=== PATIENT | female | born 1990 | race Caucasian/White ===

== ENCOUNTER 2020-12-11 09:00 | Outpatient (CLI) | payer OTHER ==
[2012-10-07 06:11] VITALS: BMI 21.9
== END 2020-12-11 09:46 | disposition home or self-care (01) ==
LOC: D.LDO 09:00
PROVIDERS: ATTEND Student in an Organized Health Care Education/Training Program
DX: O35.9XX0 Maternal care for (suspected) fetal abnormality and damage, unspecified, not applicable or unspecified (principal)

== ENCOUNTER 2020-12-21 10:07 | Outpatient (CLI) | payer OTHER ==
[2012-10-07 06:11] VITALS: BMI 21.9
[2020-12-21 10:44] LABS: BASOPHILS 0.2 % (0-2); EOSINOPHILS 0.9 % (0-7); HEMOGLOBIN 11.5 g/dL (12-16); IMMATURE GRANULOCYTES 0.6 % (0-5); LYMPHOCYTE ABS# 1.21 10x3/uL (1.18-3.74); LYMPHOCYTES 13.6 % (15-50); MCH 28.3 pg (26.0-34.0); MCHC 33.8 g/dL (31.0-37.0); MCV 83.7 fL (80.0-100.0); MONOCYTES 7.8 % (2-11); NEUTROPHIL ABS# 6.83 10x3/uL (1.56-6.13); NEUTROPHILS 76.9 % (40-80); PLATELET COUNT 207 10x3/uL (130-400); RBC 4.06 10x6/uL (4.00-5.40); RDW 12.5 % (11.5-14.5); WBC 8.9 10x3/uL (4.8-10.8)
[2020-12-21 10:46] LABS: BILIRUBIN NEGATIVE (NEGATIVE); KETONE NEGATIVE (NEGATIVE); NITRITE NEGATIVE (NEGATIVE); UROBILINOGEN NORMAL mg/dL (< 2)
[2020-12-21 10:55] LABS: CALC OSMOLALITY 266 mosm/kg (275-300); CALCIUM 8.1 mg/dL (8.5-10.1); CARBON DIOXIDE 22.2 mmol/L (21.0-32.0); CHLORIDE - SERUM 103 mmol/L (98-107); CREATININE - SERUM 0.6 mg/dL (0.6-1.3); GLUCOSE 87 mg/dL (74-106); POTASSIUM - SERUM 3.4 mmol/L (3.5-5.1); SODIUM 135 mmol/L (136-145); UREA NITROGEN 7 mg/dL (7-18); eGFR NON AFRICAN AMERICAN > 90 mL/min (90-120)
[2020-12-21 11:07] LABS: ALBUMIN 2.6 g/dL (3.4-5.0); ALKALINE PHOSPHATASE 122 U/L (30-120); ALT (SGPT) 17 U/L (10-68); BILIRUBIN - INDIRECT 0.22 mg/dL (0.00-1.00); BILIRUBIN - TOTAL 0.25 mg/dL (0.2-1.3); PROTEIN - SERUM 6.1 g/dL (6.4-8.2); URIC ACID 3.5 mg/dL (2.6-7.2)
[2020-12-21 11:08] LABS: BILIRUBIN - DIRECT 0.03 mg/dL (0.00-0.30)
[2020-12-21 12:50] LABS: CREATININE - URINE 117.6 mg/dL (30-125); PRO/CRE RATIO URINE 0.1 mg/g; PROTEIN - URINE 9.2 mg/dL (0.0-11.9)
== END 2020-12-21 13:05 | disposition home or self-care (01) ==
LOC: D.LDO 10:07
PROVIDERS: ATTEND Student in an Organized Health Care Education/Training Program
DX: O36.8190 Decreased fetal movements, unspecified trimester, not applicable or unspecified (principal)

== ENCOUNTER 2020-12-27 16:13 | Outpatient (CLI) | payer OTHER ==
[2012-10-07 06:11] VITALS: BMI 21.9
[2020-12-27 16:40] LABS: BASOPHILS 0.1 % (0-2); EOSINOPHILS 0.9 % (0-7); HEMATOCRIT 33.3 % (36.0-48.0); HEMOGLOBIN 11.3 g/dL (12-16); IMMATURE GRANULOCYTES 0.6 % (0-5); LYMPHOCYTE ABS# 1.38 10x3/uL (1.18-3.74); LYMPHOCYTES 15.6 % (15-50); MCH 28.7 pg (26.0-34.0); MCHC 33.9 g/dL (31.0-37.0); MCV 84.5 fL (80.0-100.0); MEAN PLATELET VOLUME 10.1 fL (7.4-10.4); MONOCYTES 8.4 % (2-11); NEUTROPHIL ABS# 6.56 10x3/uL (1.56-6.13); NEUTROPHILS 74.4 % (40-80); PLATELET COUNT 197 10x3/uL (130-400); RBC 3.94 10x6/uL (4.00-5.40); RDW 12.5 % (11.5-14.5); WBC 8.8 10x3/uL (4.8-10.8)
[2020-12-27 17:17] LABS: CALC OSMOLALITY 274 mosm/kg (275-300); CALCIUM 8.6 mg/dL (8.5-10.1); CARBON DIOXIDE 25.3 mmol/L (21.0-32.0); CHLORIDE - SERUM 106 mmol/L (98-107); CREATININE - SERUM 0.7 mg/dL (0.6-1.3); GLUCOSE 83 mg/dL (74-106); POTASSIUM - SERUM 3.5 mmol/L (3.5-5.1); SODIUM 139 mmol/L (136-145); UREA NITROGEN 6 mg/dL (7-18); eGFR NON AFRICAN AMERICAN > 90 mL/min (90-120)
[2020-12-27 17:29] LABS: ALBUMIN 2.5 g/dL (3.4-5.0); ALKALINE PHOSPHATASE 131 U/L (30-120); ALT (SGPT) 17 U/L (10-68); BILIRUBIN - DIRECT 0.05 mg/dL (0.00-0.30); BILIRUBIN - TOTAL 0.15 mg/dL (0.2-1.3); PROTEIN - SERUM 5.6 g/dL (6.4-8.2)
[2020-12-27 18:02] LABS: BILIRUBIN NEGATIVE (NEGATIVE); CREATININE - URINE 115.2 mg/dL (30-125); KETONE NEGATIVE (NEGATIVE); NITRITE NEGATIVE (NEGATIVE); PRO/CRE RATIO URINE 0.1 mg/g; PROTEIN - URINE 12.9 mg/dL (0.0-11.9); UROBILINOGEN NORMAL mg/dL (< 2)
[2020-12-27 18:03] LABS: BACTERIA MODERATE HPF (NONE SEEN); SQUAMOUS EPITHELIAL 0-5 HPF (0-4)
[2020-12-27 18:04] LABS: AMORPHOUS SEDIMENT MANY LPF (NONE SEEN)
[2020-12-31 11:43] LABS: CREATININE - URINE 130.2 mg/dL (30-125); PRO/CRE RATIO URINE 0.1 mg/g; PROTEIN - URINE 13.8 mg/dL (0.0-11.9)
== END 2020-12-27 18:50 | disposition home or self-care (01) ==
LOC: D.LDO 16:13
PROVIDERS: ATTEND Student in an Organized Health Care Education/Training Program
DX: O26.899 Other specified pregnancy related conditions, unspecified trimester (principal); R51.9 Headache, unspecified

== ENCOUNTER 2020-12-31 11:46 | Outpatient (CLI) | payer OTHER ==
[2012-10-07 06:11] VITALS: BMI 21.9
[2021-01-02 20:49] VITALS: BMI 32.3
== END 2020-12-31 12:22 | disposition home or self-care (01) ==
LOC: D.LDO 11:46
PROVIDERS: ATTEND Obstetrics & Gynecology
DX: O16.9 Unspecified maternal hypertension, unspecified trimester (principal)

== ENCOUNTER 2021-01-02 20:03 | Inpatient (IN) | payer OTHER ==
[~2021-01-02] VITALS: Ht 170.2 cm; Wt 93.4 kg
[2021-01-02] MEDS ORDERED: TUMS X-STR300 MG PO (20:47)
[2021-01-02] MEDS ORDERED: UNISOM SLEEP AI25 MG PO (20:48)
[2021-01-02] MEDS ORDERED: FAMOTIDINE10 MG PO (20:48)
[2021-01-02 20:49] VITALS: BP 126/83; Ht 170.2 cm; Wt 93.4 kg
[2021-01-02] MEDS ORDERED: ACETAMINOPHEN500 M1 PO (20:49)
[2021-01-02 21:12] LABS: HEMATOCRIT 33.6 % (36.0-48.0); HEMOGLOBIN 11.4 g/dL (12-16); MCH 28.3 pg (26.0-34.0); MCHC 33.9 g/dL (31.0-37.0); MCV 83.4 fL (80.0-100.0); MEAN PLATELET VOLUME 10.3 fL (7.4-10.4); RBC 4.03 10x6/uL (4.00-5.40); RDW 12.6 % (11.5-14.5); WBC 9.8 10x3/uL (4.8-10.8)
[2021-01-03 06:17] LABS: UDS - AMPHET NEGATIVE QUAL (NEGATIVE); UDS - BARB NEGATIVE QUAL (NEGATIVE); UDS - BENZO NEGATIVE QUAL (NEGATIVE); UDS - COCAINE NEGATIVE QUAL (NEGATIVE); UDS - OPIATE NEGATIVE QUAL (NEGATIVE); UDS - PCP NEGATIVE QUAL (NEGATIVE); UDS - THC NEGATIVE QUAL (NEGATIVE)
[2021-01-03 06:50] LABS: NITRITE NEGATIVE (NEGATIVE)
[2021-01-03 06:51] LABS: BILIRUBIN NEGATIVE (NEGATIVE); KETONE SMALL mg/dL (NEGATIVE); SQUAMOUS EPITHELIAL 0-5 HPF (0-4); UROBILINOGEN NORMAL mg/dL (< 2); WHITE CELLS - URINE 0-5 HPF (0-4)
[2021-01-03 06:52] LABS: BACTERIA MODERATE HPF (NONE SEEN)
--- NOTE | 2021-01-03 09:10 | NUR ---
VERIFIED WITH DR MCCRACKEN CORRECT DOSE OF MORPHINE TO BE 4MG EVERY 4 HOURS PRN PAIN.
[2021-01-04 08:13] LABS: RAPID PLASMA REAGIN Non Reactive (Non Reactive)
--- NOTE | 2021-01-04 11:30 | NUR ---
PT TRANSFERRED TO ROOM 1257 VIA W/C. PT TRANSFERRED TO BED WITH MODERATE ASSIST. PT ORIENTED TO NEW ROOM AND CALL LIGHT. LUNCH TRAY DELIVERED AND SET UP. FRESH ICE WATER GIVEN. PT STATES SHE IS CRAMPING AND WOULD LIKE MOTRIN AFTER SHE FINISHES EATING LUNCH AND . WILL RETURN FOR PT CHECK AND MOTRIN ADMIN. SRUx2, CL IN REACH. SIG OTHER ON BEDSIDE COUCH.
--- NOTE | 2021-01-04 12:37 | NUR ---
THIS RN TO ROOM FOR PT CHECK. PT SITTING UP IN BED, . RATES PAIN 4/10, CRAMPING WITH , REQUESTING MOTRIN. MOTRIN ADMIN ORDERED, SEE EMAR FOR DOC. PT INSTRUCTED TO CALL FOR ASSIST WHEN SHE FEELS THE URGE TO VOID, UNDERSTANDING VERBALIZED. NURSERY TO ROOM AT THIS TIME FOR CHECK. SRUx2, CL IN REACH.
--- NOTE | 2021-01-04 13:55 | NUR ---
PT CALLS OUT GATEKEEPER LIGHT STATING SHE IS READY TO GET UP TO BR. THIS RN TO ROOM. PT TO BR WITH STEADY GAIT, NO ASSIST NEEDED. PT VOIDS LARGE AMOUNT UNMEASURED URINE, PERFORMS PERICARE AND PAD CHANGE PER SELF. MOD RUBRA LOCHIA WITH SMALL CLOT NOTED TO PREVIOUS PERIPADS. PT INSTRUCTED ON S/S TO REPORT REGARDING LOCHIA. PT VERBALIZES UNDERSTANDING. PT AMBULATES BACK TO BED WITHOUT ASSIST. SRUx2, CL IN REACH. DENIES FURTHER NEEDS OR PAIN, MED TIME ON BOARD REINFORCED FOR NEXT MOTRIN IF NEEDED. SIG OTHER ON BEDSIDE COUCH. AT BEDSIDE IN [facility].
--- NOTE | 2021-01-04 17:25 | NUR ---
THIS RN TO ROOM FOR PT CHECK. PT SITTING UP IN BED, EATING SUBWAY SANDWICH. PT C/O CRAMPING RATED 3-4/10, REQUESTING SOMETHING FOR PAIN. PT ADMIN PRN TYLENOL ORDERED, SEE EMAR FOR DOC. PT INSTRUCTED ON NEXT MED TIME AND ON WHITE BOARD. UNDERSTANDING VERBALIZED, PT DENIES FURTHER NEEDS. SRUX2, CL IN REACH.
--- NOTE | 2021-01-04 19:00 | NUR ---
REPORT TO ESTELA RN
[2021-01-04 19:40] VITALS: BP 134/78
--- NOTE | 2021-01-04 19:40 | NUR ---
SHIFT ASSESSMENT COMPLETED AT THIS TIME. SEE FLOWSHEET. PT REPORTS PAIN 5/10 DESCRIBED CRAMPING. MOTRIN 600MG X1 TAB GIVEN PER ORDERS AT THIS TIME. FOB IN ROOM WITH UP IN ARMS BONDING. PT REPORTS SMALL LOCHIA RUBRA WHEN VOIDING, NO CLOTS. FUNDUS FIRM, U/1. NO FURTHER NEEDS VOICED AT THIS TIME. BED LOW, WHEELS LOCKED, CALL LIGHT AND PHONE WITHIN REACH, SIDE RAILS UP X2.
--- NOTE | 2021-01-04 21:12 | NUR ---
ROUNDS MADE. PT RATES PAIN 5/10 STILL AND REQUESTS TYLENOL. TYLENOL 650 MG GIVEN AT THIS TIME PER ORDERS. WILL CONTINUE TO MONITOR.
--- NOTE | 2021-01-04 22:21 | NUR ---
PT CONTINUES TO RATE PAIN 5/10 WITH CRAMPING. PERCOCET 10/325MG X1 TAB GIVEN PER ORDERS. SEE EMAR.
--- NOTE | 2021-01-04 23:39 | NUR ---
PAIN REASSESSMENT COMPLETED. PT RATES PAIN 2/10 AT THIS TIME AND TOLERABLE. NO NEEDS VOICED.
--- NOTE | 2021-01-05 01:38 | NUR ---
ROUNDS MADE. PT SITTING UP IN BED INFANT. REPORTS PAIN IS "MUCH BETTER." DENIES NEEDS AT THIS TIME. WILL CONTINUE TO MONITOR.
--- NOTE | 2021-01-05 05:23 | NUR ---
PT C/O ABDOMINAL CRAMPING 4/10 IBUPROFEN GIVEN. PT DENIES ANY FURTHER NEEDS AT THIS TIME.
[2021-01-05 06:00] LABS: BASOPHILS 0.2 % (0-2); EOSINOPHILS 1.4 % (0-7); HEMATOCRIT 31.7 % (36.0-48.0); HEMOGLOBIN 10.5 g/dL (12-16); IMMATURE GRANULOCYTES 0.5 % (0-5); LYMPHOCYTES 17.2 % (15-50); MCH 27.9 pg (26.0-34.0); MCHC 33.1 g/dL (31.0-37.0); MCV 84.1 fL (80.0-100.0); MEAN PLATELET VOLUME 10.2 fL (7.4-10.4); MONOCYTES 8.1 % (2-11); NEUTROPHIL ABS# 7.15 10x3/uL (1.56-6.13); NEUTROPHILS 72.6 % (40-80); PLATELET COUNT 186 10x3/uL (130-400); RBC 3.77 10x6/uL (4.00-5.40); RDW 12.9 % (11.5-14.5); WBC 9.9 10x3/uL (4.8-10.8)
--- NOTE | 2021-01-05 06:07 | NUR ---
PAIN REASSESSMENT COMPLETED. PT RESTING QUIETLY IN RT LATERAL, EYES CLOSED, RESPIRATIONS EVEN AND UNLABORED. PT LEFT UNDISTURBED.
[2021-01-05 07:30] VITALS: BP 127/78
--- NOTE | 2021-01-05 07:30 | NUR ---
AM ASSESSMENT COMPLETED. SEE FLOWSHEET. PT IS AT THIS TIME. FOB ALSO IN ROOM TENDING TO BABY DURING ASSESSMENT. PT DENIES HEAVY BLEEDING OR PASSING CLOTS. DENIES SOB, DIZZINESS, CHEST PAIN OR DIFFICULTY BREATHING. LARGE ICE WATER SERVED. SR UP X2, CALL LIGHT AND PHONE WITHIN REACH.
--- NOTE | 2021-01-05 09:45 | NUR ---
PROGRESS REPORT GIVEN TO DR. BLAIR MD ON UNIT.
--- NOTE | 2021-01-05 11:30 | NUR ---
LINENS PROVIDED, PT REQUESTS SO SHE CAN TAKE A SHOWER. DIETARY SERVES REGULAR LUNCH TRAY. PT DENIES ALL OTHER NEEDS. SRUP X2, CL/PHONE WITHIN REACH.
--- NOTE | 2021-01-05 16:01 | NUR ---
PROGRESS REPORT GIVEN TO DR. PINTO, PT REPORTS THE TORADOL HAS HELPED SIGNIFICANTLY, ALONG WITH TYLENOL. MD WILL SEND PT HOME WITH SCRIPT FOR TORADOL X1 DAY, AND THEN TO TAKE IBUPROFEN, SCRIPT GIVEN WELL.
[2021-01-05 16:05] VITALS: BP 99/55
--- NOTE | 2021-01-05 16:22 | NUR ---
TO PT'S ROOM, PT IS SITTING UP ON THE SOFA, HOLDING , ALONG WITH SIG OTHER. HE HAS BROUGHT IN SONIC TO EAT FOR SUPPER. TORADOL AND TYLENOL ADM, SEE EMAR FOR ALL MEDS ADM BY THIS RN. PERIPANTIES AND PADS PROVIDED. PT DENIES ALL OTHER NEEDS AT THIS TIME, THEY PLAN FOR DISCHARGE THIS EVENING, DEPENDING ON BABY'S BILI LEVEL.
[2021-01-05 19:17] VITALS: BP 130/78
--- NOTE | 2021-01-05 19:17 | NUR ---
PM ASSESSMENT COMPLETED. AAOX4, VSS, AFEBRILE, RESP EVEN AND UNLABORED, HEART RRR, ABD SOFT AND NONTENDER, FF AT U/2 AND MIDLINE, BOWEL SOUNDS PRESEN X4 QUADS, REPORTS PASSING FLATUS AND VAGINAL BLEEDING "NORMAL", DENIES CLOTS, VOIDING WITHOUT DIFFICULTY, PERFORMS SELF PERICARE USING BETADINE/WATER PERIBOTTLE, LINK FREELY, NEGATIVE JOSE'S SIGN B LE, 1+ NONPITTING EDEMA NOTED TO B LE. C/L IN EASY REACH, DENIES NEEDS/CONCERNS AT PRESENT OTHER THAN "READY TO GO HOME WHEN WE CAN", SR UP X2, BED IN LOW POSITION, BED BRAKES LOCKED. WILL MONITOR.
[2021-01-05] MEDS ORDERED: TORADOL10 MG PO (19:38)
[2021-01-05] MEDS ORDERED: IBUPROFEN800 MG PO (19:39)
--- NOTE | 2021-01-05 19:57 | NUR ---
DISCHARGE INSTRUCTIONS PROVIDED TO PT AND PT SPOUSE WITH HANDOUTS PROVIDED FOR REVIEW AT HOME. DENIES QUESTIONS/CONCERNS. STATES WILL FINISH THEN DESIRES TO GO HOME. INSTRUCTED TO USE C/L TO NOTIFY THIS RN OF NEED FOR W/C TO DISCHARGE.
--- NOTE | 2021-01-05 20:55 | NUR ---
pt discharged to private auto via w/c with secured in carrier-style carseat and all personal belongings, nad noted. stable condition.
== END 2021-01-05 20:55 | disposition home or self-care (01) | DRG 807 ==
LOC: D.LD 20:03
PROVIDERS: ADMIT Student in an Organized Health Care Education/Training Program; ATTEND Student in an Organized Health Care Education/Training Program
PROC: 3E033VJ Introduction of Other Hormone into Peripheral Vein, Percutaneous Approach (ICD-10-PCS; 2021-01-02)
PROC: 10E0XZZ Delivery of Products of Conception, External Approach (ICD-10-PCS; principal; 2021-01-04)
PROC: 0KQM0ZZ Repair Perineum Muscle, Open Approach (ICD-10-PCS; 2021-01-04)
PROC: 10907ZC Drainage of Amniotic Fluid, Therapeutic from Products of Conception, Via Natural or Artificial Opening (ICD-10-PCS; 2021-01-04)
DX: O13.4 Gestational [pregnancy-induced] hypertension without significant proteinuria, complicating childbirth (principal); Z37.0 Single live birth; Z3A.37 37 weeks gestation of pregnancy; O70.1 Second degree perineal laceration during delivery